=== PATIENT | female | born 1950 | race Caucasian/White ===

== ENCOUNTER 2017-11-04 04:31 | Inpatient (IN) ==
[2017-11-04 05:18] LABS: Baso # (Auto) 0.1 th/mm3 (0.0-0.2); Baso % (Auto) 0.4 % (0.0-2.0); Eos # (Auto) 0.1 th/mm3 (0.0-0.4); Eos % (Auto) 0.8 % (0.0-4.0); Hematocrit 46.2 % (35.0-46.0); Hemoglobin 15.3 gm/dL (11.6-15.3); Lymph # (Auto) 1.5 th/mm3 (1.0-4.8); Lymph % (Auto) 11.1 % (9.0-44.0); Mean Corpuscular HGB Conc 33.2 % (32.0-36.0); Mean Corpuscular Hemoglobin 27.5 pg (27.0-34.0); Mean Corpuscular Volume 82.9 fL (80.0-100.0); Mean Platelet Volume 7.7 fL (7.0-11.0); Mono # (Auto) 0.5 th/mm3 (0.0-0.9); Mono % (Auto) 3.7 % (0.0-8.0); Neut # (Auto) 11.6 th/mm3 (1.8-7.7); Platelet Count 262 th/mm3 (150-450); Red Blood Count 5.58 mil/mm3 (4.00-5.30); Red Cell Distribution Width 16.6 % (11.6-17.2); White Blood Count 13.8 th/mm3 (4.0-11.0)
[2017-11-04 05:39] LABS: Albumin 3.9 g/dL (3.4-5.0); Anion Gap 6 meq/L (5-15); Aspartate Aminotransferase 14 U/L (15-37); Blood Urea Nitrogen 27 mg/dL (7-18); Calcium 8.7 mg/dL (8.5-10.1); Carbon Dioxide 25.7 meq/L (21.0-32.0); Chloride 105 meq/L (98-107); Glomerular Filtration Rate 44 mL/min (>89); Glucose,Random 163 mg/dL (74-106); Lipase 136 U/L (73-393); Potassium 4.1 meq/L (3.5-5.1); Sodium 137 meq/L (136-145)
[2017-11-04 05:40] LABS: Alanine Aminotransferase 15 U/L (10-53)
[2017-11-04 05:42] LABS: Alkaline Phosphatase 130 U/L (45-117); Total Protein 7.8 g/dL (6.4-8.2)
[2017-11-04] MEDS ORDERED: Famotidine PF Inj 20 MG/2 ML Vial IV.PUSH ONE (05:45)
[2017-11-04] MEDS ORDERED: Morphine Inj 4 MG/ML Vial IV.PUSH ONE (05:45)
[2017-11-04] MEDS ORDERED: Diatrizoate Meglum/Diatrizoate Sod Liq 9 ML UDC PO ONE (05:46)
[2017-11-04] MEDS ORDERED: Sodium Chlor 0.9% Inj 500 ML IV.SIG ONE (05:54)
--- NOTE | 2017-11-04 05:54 | ED ---
HPI General Chief Complaint: Abdominal Pain Stated Complaint: stomach cramping Time Seen by Provider: 11/04/17 04:45 Source: patient Mode of arrival: ambulatory Limitations: no limitations History of Present Illness HPI narrative: Patient is a 67-year-old female who is coming in with periumbilical abdominal pain that is getting worse over the last week she says she had a hernia repair 5 years ago and now whenever she sits up feels like something sticks out of her abdomen and she feels something sharp almost sticking her she denies constipation denies diarrhea. But she did vomit 3 times out of pain tonight possibly could be obstruction. Patient has mild hypertension. Denies diabetes she has had her appendix out 40 years ago. Her pain is a dull achy pain made worse with sitting up she is associated with vomiting 3 times tonight she did not take anything for the pain. It is alleviated by lying flat made worse by sitting up she has not seen another doctor for this she does not have a doctor in the [facility] system she is from [place] originally that is where she had her surgery 5 years ago for a ventral hernia repair she has mild edema in her feet which is a chronic situation she is on a water pill. Related Data Home Medications Medication Instructions Recorded Confirmed amlodipine 5 mg PO DAILY 11/04/17 11/04/17 amlodipine 10 mg PO DAILY 11/04/17 11/04/17 duloxetine 60 mg PO DAILY 11/04/17 11/04/17 hydroxyzine pamoate 100 mg PO BID PRN 11/04/17 11/04/17 losartan 50 mg PO DAILY 11/04/17 11/04/17 Allergies Allergy/AdvReac Type Severity Reaction Status Date / Time No Known Allergies Allergy Verified 11/04/17 04:35 Review of Systems Except as stated in HPI: all other systems reviewed are negative [facility] Medical History Medical History Anxiety (Acute) Hypertension (Acute) Murmur, cardiac (Acute) Psoriasis (Acute) Restless legs syndrome (Acute) Surgical History Surgical History Hx of hernia repair (Acute) Family History Family History Grandparent Diabetes Social History Social History Substance History: Active Abuse Second Hand Smoke Exposure: No Smoking Status: Current every day smoker Tobacco Type: Cigarettes Packs Per Day: 0.5 (since 18 years) Cigarettes Per Day: 10.0 How Often Do You Have a Drink Containing Alcohol: Monthly or less Recent Travel in [place] within the Last 8 Weeks: No Recent Out of Country Travel within the Last 8 Weeks: No Substance Abuse Detail Marijuana: Substance Use Status: Active Reason for Use: Feels Good Immunization History Tetanus Immunization: Unsure Hx Influenza Vaccine This Season: No Exam Narrative Exam Narrative: GENERAL: Patient laying flat in the stretcher in no apparent distress SKIN: Warm and dry. HEAD: Atraumatic. Normocephalic. EYES: Pupils equal and round. No scleral icterus. No injection or drainage. ENT: No nasal bleeding or discharge. Mucous membranes pink and moist. NECK: Trachea midline. No JVD. CARDIOVASCULAR: Regular rate and rhythm. RESPIRATORY: No accessory muscle use. Clear to auscultation. Breath sounds equal bilaterally. GASTROINTESTINAL: Abdomen obese abdomen with a slight defect in the periumbilical area when she sits up defect shows some bowel coming through this week and abdominal wall. Skin has a Kaylin-like circular rash about 4 cm possibly fungal MUSCULOSKELETAL: Extremities mild 1+ pitting edema mild to the bilateral feet ..left slightly larger than the right its. Five out of 5 muscle strength in the arms and legs. Normal speech. PSYCHIATRIC: Appropriate mood and affect; insight and judgment normal. Course Initial Documented Vital Signs Temperature 98.1 F 11/04/17 04:35 Pulse Rate 93 H 11/04/17 04:35 Respiratory Rate 18 11/04/17 04:35 Blood Pressure 169/82 H 11/04/17 04:35 Pulse Oximetry 96 11/04/17 04:35 Last Documented Vital Signs Temperature 98.6 F 11/06/17 12:00 Pulse Rate 84 11/06/17 12:00 Respiratory Rate 20 11/06/17 12:00 Blood Pressure 178/81 H 11/06/17 12:00 Pulse Oximetry 93 L 11/06/17 12:00 Medical Decision Making [facility] Narrative Medical decision making narrative: DDx is SBO versus abdominal wall laxity versus other upright and flat chest x-ray done as well labs are reviewed no significant findings on labs nor on plain films her pain indicate need for a p.o. CAT scan and make sure the contrast passes all the way to her's large bowel and there is no small bowel obstruction with a history of prior surgery acute pain and vomiting I want to rule out small bowel obstruction with a p.o. contrast CAT scan I give her for morphine 500 cc of normal saline and CAT scan Patient signed out to me by Dr. Jones at 700. CT scan shows SBO. NG tube placed. Patient will be admitted for further management. Differential Diagnosis Differential Diagnosis: SBO vs hernia recurrence vs ileus vs gastroenteritis vs colitis other adhesion causing pain Lab Data Result diagrams: 11/06/17 08:16 11/06/17 08:16 Lab Results 11/04/17 11/04/17 11/04/17 Range/Units 04:50 04:50 06:08 WBC 13.8 H (4.0-11.0) th/mm3 RBC 5.58 H (4.00-5.30) mil/mm3 Hgb 15.3 (11.6-15.3) gm/dL Hct 46.2 H (35.0-46.0) % MCV 82.9 (80.0-100.0) fL MCH 27.5 (27.0-34.0) pg MCHC 33.2 (32.0-36.0) % RDW 16.6 (11.6-17.2) % Plt Count 262 (150-450) th/mm3 MPV 7.7 (7.0-11.0) fL Neut % (Auto) 84.0 H (16.0-70.0) % Lymph % (Auto) 11.1 (9.0-44.0) % Rains % (Auto) 3.7 (0.0-8.0) % Eos % (Auto) 0.8 (0.0-4.0) % Baso % (Auto) 0.4 (0.0-2.0) % Neut # (Auto) 11.6 H (1.8-7.7) th/mm3 Lymph # (Auto) 1.5 (1.0-4.8) th/mm3 Rains # (Auto) 0.5 (0.0-0.9) th/mm3 Eos # (Auto) 0.1 (0.0-0.4) th/mm3 Baso # (Auto) 0.1 (0.0-0.2) th/mm3 WBC Differential . Differential Comment Auto diff final PT (9.8-11.6) sec INR Ratio Sodium 137 (136-145) meq/L Potassium 4.1 (3.5-5.1) meq/L Chloride 105 (98-107) meq/L Carbon Dioxide 25.7 (21.0-32.0) meq/L Anion Gap 6 (5-15) meq/L BUN 27 H (7-18) mg/dL Creatinine 1.23 H (0.50-1.00) mg/dL Estimated GFR 44 L (>89) mL/min Random Glucose 163 H (74-106) mg/dL Calcium 8.7 (8.5-10.1) mg/dL Total Bilirubin 0.4 (0.2-1.0) mg/dL Direct Bilirubin (0.0-0.2) mg/dL Indirect Bilirubin (0.0-0.8) mg/dL AST 14 L (15-37) U/L ALT 15 (10-53) U/L Alkaline Phosphatase 130 H (45-117) U/L Total Protein 7.8 (6.4-8.2) g/dL Albumin 3.9 (3.4-5.0) g/dL Lipase 136 (73-393) U/L Urine Color Yellow (Yellw/Straw) Urine Clarity Clear (Clear) Urine pH 5.0 (5.0-8.5) Ur Specific [place] 1.018 (1.002-1.035) Urine Protein 30 H (Neg-Trace) mg/dL Urine Glucose (UA) Negative (Negative) mg/dL Urine Ketones Negative (Negative) mg/dL Urine Occult Blood Negative (Negative) Urine Nitrate Negative (Negative) Urine Bilirubin Negative (Negative) Urine Urobilinogen 4 or greater (Less than 2) mg/dL Ur Leukocyte Esterase Negative (Negative) Urine RBC 1 (0-3) /hpf Urine WBC 3 (0-5) /hpf Ur Squamous Epith Cells 1 (0-5) /hpf Urine Bacteria Rare H (None) /hpf Hyaline Casts 6 (0-3) /lpf Urine Mucus Few H (Occasional) /lpf Urine Opiates Screen (Neg) Ur Barbiturates Screen (Neg) Ur Amphetamines Screen (Neg) U Benzodiazepines Scrn (Neg) Urine Cocaine Screen (Neg) U Cannabinoids Screen (Neg) 11/04/17 11/05/17 11/05/17 Range/Units 06:08 07:50 07:50 WBC 9.6 (4.0-11.0) th/mm3 RBC 5.73 H (4.00-5.30) mil/mm3 Hgb 15.6 H (11.6-15.3) gm/dL Hct 47.7 H (35.0-46.0) % MCV 83.3 (80.0-100.0) fL MCH 27.3 (27.0-34.0) pg MCHC 32.8 (32.0-36.0) % RDW 16.3 (11.6-17.2) % Plt Count 287 (150-450) th/mm3 MPV 8.2 (7.0-11.0) fL Neut % (Auto) 81.6 H (16.0-70.0) % Lymph % (Auto) 10.6 (9.0-44.0) % Rains % (Auto) 7.7 (0.0-8.0) % Eos % (Auto) 0.0 (0.0-4.0) % Baso % (Auto) 0.1 (0.0-2.0) % Neut # (Auto) 7.8 H (1.8-7.7) th/mm3 Lymph # (Auto) 1.0 (1.0-4.8) th/mm3 Rains # (Auto) 0.7 (0.0-0.9) th/mm3 Eos # (Auto) 0.0 (0.0-0.4) th/mm3 Baso # (Auto) 0.0 (0.0-0.2) th/mm3 WBC Differential . Differential Comment Auto diff final PT 10.1 (9.8-11.6) sec INR 1.0 Ratio Sodium (136-145) meq/L Potassium (3.5-5.1) meq/L Chloride (98-107) meq/L Carbon Dioxide (21.0-32.0) meq/L Anion Gap (5-15) meq/L BUN (7-18) mg/dL Creatinine (0.50-1.00) mg/dL Estimated GFR (>89) mL/min Random Glucose (74-106) mg/dL Calcium (8.5-10.1) mg/dL Total Bilirubin (0.2-1.0) mg/dL Direct Bilirubin (0.0-0.2) mg/dL Indirect Bilirubin (0.0-0.8) mg/dL AST (15-37) U/L ALT (10-53) U/L Alkaline Phosphatase (45-117) U/L Total Protein (6.4-8.2) g/dL Albumin (3.4-5.0) g/dL Lipase (73-393) U/L Urine Color (Yellw/Straw) Urine Clarity (Clear) Urine pH (5.0-8.5) Ur Specific [place] (1.002-1.035) Urine Protein (Neg-Trace) mg/dL Urine Glucose (UA) (Negative) mg/dL Urine Ketones (Negative) mg/dL Urine Occult Blood (Negative) Urine Nitrate (Negative) Urine Bilirubin (Negative) Urine Urobilinogen (Less than 2) mg/dL Ur Leukocyte Esterase (Negative) Urine RBC (0-3) /hpf Urine WBC (0-5) /hpf Ur Squamous Epith Cells (0-5) /hpf Urine Bacteria (None) /hpf Hyaline Casts (0-3) /lpf Urine Mucus (Occasional) /lpf Urine Opiates Screen Neg (Neg) Ur Barbiturates Screen Neg (Neg) Ur Amphetamines Screen Neg (Neg) U Benzodiazepines Scrn Neg (Neg) Urine Cocaine Screen Neg (Neg) U Cannabinoids Screen Pos H (Neg) 11/05/17 11/06/17 11/06/17 Range/Units 07:50 08:16 08:16 WBC 7.5 (4.0-11.0) th/mm3 RBC 5.27 (4.00-5.30) mil/mm3 Hgb 14.6 (11.6-15.3) gm/dL Hct 44.2 (35.0-46.0) % MCV 83.9 (80.0-100.0) fL MCH 27.8 (27.0-34.0) pg MCHC 33.1 (32.0-36.0) % RDW 16.8 (11.6-17.2) % Plt Count 241 (150-450) th/mm3 MPV 8.1 (7.0-11.0) fL Neut % (Auto) 50.1 (16.0-70.0) % Lymph % (Auto) 34.0 (9.0-44.0) % Rains % (Auto) 11.7 H (0.0-8.0) % Eos % (Auto) 4.0 (0.0-4.0) % Baso % (Auto) 0.2 (0.0-2.0) % Neut # (Auto) 3.8 (1.8-7.7) th/mm3 Lymph # (Auto) 2.6 (1.0-4.8) th/mm3 Rains # (Auto) 0.9 (0.0-0.9) th/mm3 Eos # (Auto) 0.3 (0.0-0.4) th/mm3 Baso # (Auto) 0.0 (0.0-0.2) th/mm3 WBC Differential . Differential Comment Auto diff final PT (9.8-11.6) sec INR Ratio Sodium 141 142 (136-145) meq/L Potassium 3.8 3.8 (3.5-5.1) meq/L Chloride 107 110 H (98-107) meq/L Carbon Dioxide 23.7 23.9 (21.0-32.0) meq/L Anion Gap 10 8 (5-15) meq/L BUN 19 H 12 (7-18) mg/dL Creatinine 0.77 0.61 (0.50-1.00) mg/dL Estimated GFR 75 L Greater than 89 (>89) mL/min Random Glucose 118 H 79 (74-106) mg/dL Calcium 8.4 L 7.6 L D (8.5-10.1) mg/dL Total Bilirubin 0.4 0.3 (0.2-1.0) mg/dL Direct Bilirubin 0.1 (0.0-0.2) mg/dL Indirect Bilirubin 0.3 (0.0-0.8) mg/dL AST 15 16 (15-37) U/L ALT 13 11 (10-53) U/L Alkaline Phosphatase 125 H 94 (45-117) U/L Total Protein 7.0 D 6.4 D (6.4-8.2) g/dL Albumin 3.3 L D 3.0 L (3.4-5.0) g/dL Lipase 89 (73-393) U/L Urine Color (Yellw/Straw) Urine Clarity (Clear) Urine pH (5.0-8.5) Ur Specific [place] (1.002-1.035) Urine Protein (Neg-Trace) mg/dL Urine Glucose (UA) (Negative) mg/dL Urine Ketones (Negative) mg/dL Urine Occult Blood (Negative) Urine Nitrate (Negative) Urine Bilirubin (Negative) Urine Urobilinogen (Less than 2) mg/dL Ur Leukocyte Esterase (Negative) Urine RBC (0-3) /hpf Urine WBC (0-5) /hpf Ur Squamous Epith Cells (0-5) /hpf Urine Bacteria (None) /hpf Hyaline Casts (0-3) /lpf Urine Mucus (Occasional) /lpf Urine Opiates Screen (Neg) Ur Barbiturates Screen (Neg) Ur Amphetamines Screen (Neg) U Benzodiazepines Scrn (Neg) Urine Cocaine Screen (Neg) U Cannabinoids Screen (Neg) Imaging Data Radiologist's impression: Abdomen X-Ray 11/04/17 04:53 CONCLUSION: No dilated loops of small or large bowel. Chest X-Ray 11/04/17 04:53 CONCLUSION: Cardiomegaly and indistinctness of the central bronchopulmonary markings. Abdomen/Pelvis CT 11/04/17 05:44 CONCLUSION: Small bowel obstruction with transition point in the right lower quadrant. No evidence of pneumatosis, portal venous gas, or pneumoperitoneum. No significant bowel wall thickening or surrounding edema to suggest ischemia at this time. Of note, there is mild swirling of the mesenteric vasculature near the root of the mesentery, which is nonspecific but can be seen in internal hernia/volvulus. Findings discussed with ER nurseMorena, at 7:45 AM on 11/04/2017. Abdomen X-Ray 11/05/17 00:00 CONCLUSION: No evidence of bowel obstruction. Discharge Plan Discharge Disposition Patient Disposition: 30 Still Patient Discharge Condition Condition: Stable Discharge Order Discharge Orders: Discharge Order (Routine); Ordered 11/06/17 Ordered By: Shaunna Almazan Discharge Details Diagnosis: SBO (small bowel obstruction) Physicians Team ED Provider: Channing Jones Primary Care Provider: Socrates Soto Attending Provider: Anthony Elkins Other Providers: Channing Leon Status ED Status: Left Department Discharge Information Discharge Date/Time: 11/04/17 10:49
[2017-11-04 06:23] LABS: Bacteria,Urine Rare /hpf; Bilirubin,Urine Negative (Negative); Clarity,Urine Clear (Clear); Color,Urine Yellow (Yellw/Straw); Glucose,Urine (UA) Negative (Negative); Hyaline Casts,Urine 6 /lpf (0-3); Leukocyte Esterase,Urine Negative (Negative); Mucus,Urine Few /lpf (Occasional); Nitrite,Urine Negative (Negative); Specific Gravity,Urine 1.018 (1.002-1.035); Squamous Epithelial Cell,Urine 1 /hpf (0-5); Urobilinogen,Urine 4 or Greater mg/dL (Less than 2)
--- NOTE | 2017-11-04 06:23 | XR ---
EXAM DATE: 11/04/2017 5:26 AM EDT AGE/SEX: 67 years / Female INDICATIONS: Abdomen pain and cramping. CLINICAL DATA: This is the patient's initial encounter. Patient reports that signs and symptoms have been present for 1 day and indicates a pain score of 5/10. MEDICAL/SURGICAL HISTORY: None. None. COMPARISON: No prior exams available for comparison. FINDINGS: Supine and upright views of the abdomen demonstrate some mild gaseous loops of bowel without dilated loops of small or large bowel. The visualized lower lungs are clear. Mild degenerative changes in the spine. Large body habitus. CONCLUSION: No dilated loops of small or large bowel. Electronically signed by: Wily Uriarte MD 11/04/2017 6:21 AM EDT
--- NOTE | 2017-11-04 06:24 | XR ---
EXAM DATE: 11/04/2017 5:27 AM EDT AGE/SEX: 67 years / Female INDICATIONS: Chest and abdomen pain. CLINICAL DATA: This is the patient's subsequent encounter. Patient reports that signs and symptoms h ave been present for 1 day and indicates a pain score of 4/10. MEDICAL/SURGICAL HISTORY: None. None. COMPARISON: No prior exams available for comparison. FINDINGS: The heart is moderately enlarged. There is some indistinctness of the central bronchopulmonary markin gs. No focal infiltrates seen. Both hemidiaphragms well delineated. CONCLUSION: Cardiomegaly and indistinctness of the central bronchopulmonary markings. Electronically signed by: Wily Uriarte MD 11/04/2017 6:22 AM EDT
--- NOTE | 2017-11-04 07:50 | CT ---
EXAM DATE: 11/04/2017 7:33 AM EDT AGE/SEX: 67 years / Female INDICATIONS: Shana-umbilical pain for 1 week. CLINICAL DATA: This is the patient's initial encounter. Patient reports that signs and symptoms have been present for 1 day and indicates a pain score of 2/10. MEDICAL/SURGICAL HISTORY: Hypertension. Appendectomy. Hernia repair ORAL CONTRAST: Prescribed oral contrast ingested. RADIATION DOSE: 17.20 CTDI (mGy) COMPARISON: No prior exams available for comparison. TECHNIQUE: Multiple contiguous axial images were obtained through the abdomen and pelvis following b olus infusion of 95 ml Omnipaque 350 (iohexol) nonionic water-soluble contrast as a single exam dos e. Prescribed oral contrast ingested. Using automated exposure control and adjustment of the mA and/ or kV according to patient size, radiation dose was kept as low as reasonably achievable to obtain op timal diagnostic quality images. DICOM format image data is available electronically for review and comparison. FINDINGS: Lower Lungs: The visualized lower lungs are clear. Liver: The liver has a homogeneous density without space-occupying lesion. There is no dilation of th e biliary tree. Spleen: Homogeneous density without enlargement. Pancreas: Unremarkable without mass or calcification. Kidneys: Normal in size and shape. No hydronephrosis. Right inferior pole renal cyst. Adrenal Glands: Nodular thickening of both adrenal glands, left greater than right. Aorta: The aorta and proximal iliac vessels are atherosclerotic without aneurysmal dilation. Bowel/Mesentery: Several mildly dilated loops of small bowel with air-fluid levels throughout the ab domen with a transition point in the right lower quadrant, consistent with small bowel obstruction. N o evidence of pneumatosis, portal venous gas, or pneumoperitoneum. No significant bowel wall thickeni ng or surrounding edema. There is mild swirling of mesenteric vasculature near the root of the mesent jon. Multiple small mesenteric lymph nodes. Abdominal Wall: Small fat-containing ventral hernia. Retroperitoneum: No evidence of adenopathy in the retrocrural, para-aortic, or deep pelvic regions. Bladder: Contours are smooth. Reproductive Organs: No abnormal masses or calcifications seen. Inguinal: The inguinal region is unremarkable without evidence of adenopathy. Bony Structures: Degenerative changes of the spine and pelvis. CONCLUSION: Small bowel obstruction with transition point in the right lower quadrant. No evidence of pneumatosis , portal venous gas, or pneumoperitoneum. No significant bowel wall thickening or surrounding edema t o suggest ischemia at this time. Of note, there is mild swirling of the mesenteric vasculature near t he root of the mesentery, which is nonspecific but can be seen in internal hernia/volvulus. Findings discussed with ER nurse, Morena, at 7:45 AM on 11/04/2017. Electronically signed by: Deepa Acuña MD 11/04/2017 7:49 AM EDT
--- NOTE | 2017-11-04 09:15 | P.HPFP ---
History of Present Illness Primary Care Physician: Socrates Soto <Anthony Elkins - 11/05/17 20:07> Socrates Soto <Michelle Acosta - 11/04/17 09:15> History of Present Illness: 67 year old female with a past medical history of hypertension, cardiac murmur, previous hernia repair 7 years ago presents to the emergency room due to midepigastric abdominal pain that started last night around 11pm, she had associated cramping and described it as labor pains. The pain does not radiate. She had associated nausea and vomiting. Emesis x3 ( clear fluids, no blood or bile). She did not take anything to relieve the pain. Nothing seems to make the pain better or worse and the pain comes and goes since 11pm. After that last time she threw up around 4 am, it was so bad that she broke out in a sweat and that prompted her to come to the ED. This has never happened to her before in the past. She has not had anything to eat anything since 11 am yesterday morning and had orange chicken from the [employer] restaurant. Last BM was a "hard BM" yesterday but pt is unsure of what time she went. She denies any melana. She had a hernia repair 7 year ago and the team noticed an additional hernia after the surgery that was not repaired due to the surgeon leaving the state. She states she has not been able to follow-up on this. Denies any recent illnesses or sick contacts. Has a BM at least once a day. Positive flatus earlier this morning. SH: lives in an apartment with her daughter, feels safe at home, not sexually active. <Michelle Acosta - 11/04/17 22:33> - Diagnosis (1) SBO (small bowel obstruction) (2) Nausea & vomiting (3) MARTIN (acute kidney injury) (4) Hypertension (5) Anxiety (6) Restless leg (7) Smoker (8) History of drug abuse (9) Nutrition, metabolism, and development symptoms (10) DVT prophylaxis <Anthony Elkins - 11/05/17 20:07> (1) SBO (small bowel obstruction) (2) Nausea & vomiting (3) MARTIN (acute kidney injury) (4) Hypertension (5) Anxiety (6) Restless leg (7) Smoker (8) History of drug abuse (9) Nutrition, metabolism, and development symptoms (10) DVT prophylaxis <Michelle Acosta 11/04/17 22:54> Inpatient Certification: I certify that the inpatient services were ordered in accordance with Medicare regulations governing the order. This includes certification that hospital inpatient services are reasonable and necessary and in the case of services not specified as inpatient-only under 42 CFR 419.22(n), that they are appropriately provided as inpatient services in accordance to with the 2-midnight benchmark under 43 CFR 412.3(e) <BrittniAnthony 11/05/17 20:07> I certify that the inpatient services were ordered in accordance with Medicare regulations governing the order. This includes certification that hospital inpatient services are reasonable and necessary and in the case of services not specified as inpatient-only under 42 CFR 419.22(n), that they are appropriately provided as inpatient services in accordance to with the 2-midnight benchmark under 43 CFR 412.3(e) <Michelle Acosta 11/04/17 09:15> Review of Systems Constitutional: Reports weakness, Denies chills, Denies fever(s), Denies weight gain, Denies weight loss <Michelle Acosta 11/04/17 09:15> Cardiovascular: Reports irregular heart rhythm, Denies chest pain <Michelle Acosta 11/04/17 09:15> Comments: patient has a heart murmur <Michelle Acosta 11/04/17 09:15> Respiratory: Reports cough, Denies shortness of breath, Denies shortness of breath with activity <Michelle Acosta 11/04/17 09:15> Comments: productive sputum: phlegm color <Michelle Acosta 11/04/17 09:15> Gastrointestinal: Reports abdominal pain, Reports cramping, Denies black, tarry stools, Denies bright, red blood in stools, Denies change in bowel habits, Denies change in stools, Denies constipation <Michelle Acosta 11/04/17 09:15> PMFSH - History History Provided By: Patient <Michelle Acosta 11/04/17 09:15> - Medical History Medical History: Medical History (Last Updated 11/04/17 @ 09:15 by Michelle Acosta MD, R1) Anxiety Hypertension Murmur, cardiac Psoriasis Restless legs syndrome <BrittniAnthony 11/05/17 19:55> Medical History (Last Updated 11/04/17 @ 09:15 by Michelle Acosta MD, R1) Anxiety Hypertension Murmur, cardiac Psoriasis Restless legs syndrome <Michelle Acosta - 11/04/17 09:15> - Surgical History Surgical History: Surgical History (Last Reviewed 11/04/17 @ 09:15 by Michelle Acosta MD, R1) Hx of hernia repair <Anthony Elkins 11/05/17 19:55> Surgical History (Last Reviewed 11/04/17 @ 09:15 by Michelle Acosta MD, R1) Hx of hernia repair <Michelle Acosta - 11/04/17 09:15> - Family History Family History: Family History (Last Updated 11/04/17 @ 09:10 by Michelle Acosta MD, R1) Grandparent Diabetes <Anthony Elkins 11/05/17 19:55> Family History (Last Updated 11/04/17 @ 09:10 by Michelle Acosta MD, R1) Grandparent Diabetes <Michelle Acosta 11/04/17 09:15> - Tobacco History Second Hand Smoke Exposure: No <Michelle Acosta 11/04/17 09:15> Tobacco Use In Past 30 Days: Yes <Michelle Acosta 11/04/17 09:15> Smoking Status: Current every day smoker <Michelle Acosta 11/04/17 09:15> Tobacco Type: Cigarettes <Michelle Acosta - 11/04/17 09:15> Packs Per Day: 0.5 (since 20 years) <Michelle Acosta 11/04/17 09:15> - Alcohol History How Often Do You Have a Drink Containing Alcohol: Monthly or less <Michelle Acosta 11/04/17 09:15> - Substance Use History Substance History: Active Abuse <Michelle Acosta 11/04/17 09:15> - Substance Use Type Marijuana Status: Active <Michelle Acosta - 11/04/17 09:15> Reason for Use: Feels Good <Michelle Acosta - 11/04/17 09:15> - Travel History Recent Travel in the [facility] Within the Last 8 Weeks: No <Roque Acostaantha - 09:15> Recent Travel Out of the Country Within the Last 8 Weeks: No <BrookchristaRoque shieldsMichelle - 11/04/17 09:15> - Immunization History Tetanus Immunization: Unsure <Roque Acostaantha - 11/04/17 09:15> Hx Influenza Vaccine This Season: No <BrookchristaRoque shieldsMichelle - 11/04/17 09:15> Medications and Allergies Allergies Allergy/AdvReac Type Severity Reaction Status Date / Time No Known Allergies Allergy Verified 11/04/17 04:35 <Anthony Elkins - 11/05/17 20:07> Home Medications Medication Instructions Recorded Confirmed Type amlodipine 5 mg PO DAILY 11/04/17 11/04/17 History amlodipine 10 mg PO DAILY 11/04/17 11/04/17 History duloxetine 60 mg PO DAILY 11/04/17 11/04/17 History hydroxyzine pamoate 100 mg PO BID PRN 11/04/17 11/04/17 History losartan 50 mg PO DAILY 11/04/17 11/04/17 History <Anthony Elkins - 11/05/17 20:07> Active Medications: Active Medications Al Hydroxide/Mg Hydroxide (Milk Of Magndarrel Liq) 30 ml PO Q12H PRN PRN Reason: Mild Constipation Bisacodyl (Dulcolax Supp) 10 mg RECTAL DAILY PRN PRN Reason: SEVERE CONSITIPATION Diphenhydramine HCl (Benadryl Inj) 25 mg IV.PUSH HS PRN PRN Reason: RESTLESS LEGS Enalaprilat (Vasotec Inj) 1.25 mg IV.PUSH Q6H PRN PRN Reason: BLOOD PRESSURE MANAGEMENT Heparin Sodium (Porcine) (Heparin Inj) 5,000 units SQ Q8HR [facility] Last Admin: 11/05/17 13:14 Dose: 5,000 units Sodium Chloride (Ns Inj) 1,000 mls @ 120 mls/hr IV.CONT .Q8H20M [facility] Last Admin: 11/05/17 06:24 Dose: 120 mls/hr Lactulose (Lactulose Liq) 30 ml PO DAILY PRN PRN Reason: SEVERE CONSITIPATION Morphine Sulfate (Morphine Inj) 2 mg IV.PUSH Q3H PRN PRN Reason: PAIN SCALE 1-5 OR MILD SOB Last Admin: 11/04/17 10:36 Dose: 2 mg Morphine Sulfate (Morphine Inj) 4 mg IV.PUSH Q2H PRN PRN Reason: PAIN 6-10;IF UNABLE TO TAKE PO Naloxone HCl (Narcan Inj) 0.4 mg IV.PUSH UNSCH PRN PRN Reason: SEE LABEL COMMENTS Nicotine (Habitrol 14 Mg Patch.24 Hr) 1 patch T-DERMAL DAILY PRN PRN Reason: WITHDRAWAL Ondansetron HCl (Zofran Inj) 4 mg IV.PUSH Q6H PRN PRN Reason: NAUSEA OR VOMITING Sennosides (Senokot) 17.2 mg PO Q12H PRN PRN Reason: Moderate Constipation Temazepam (Restoril) 15 mg PO HS PRN PRN Reason: INSOMNIA <Anthony Elkins - 11/05/17 19:55> Exam Vital signs: Vital Signs 11/04/17 20:00 11/05/17 00:00 11/05/17 04:00 Temperature 98.5 F 98.1 F 98.3 F Pulse Rate 92 H 98 H 100 H Respiratory Rate 20 20 18 Blood Pressure 154/75 H 157/74 H 132/61 Pulse Oximetry 92 L 94 L 92 L 11/05/17 04:24 11/05/17 08:00 11/05/17 12:00 Temperature 98.7 F 98.4 F Pulse Rate 100 H 97 H Respiratory Rate 20 20 Blood Pressure 166/80 H 166/77 H Pulse Oximetry 93 L 95 92 L 11/05/17 16:00 Temperature 98.3 F Pulse Rate 96 H Respiratory Rate 20 Blood Pressure 138/71 Pulse Oximetry 93 L Intake & Output 11/05/17 11/05/17 11/06/17 06:59 18:59 06:59 Intake Total 1200 / 1200 Output Total 1000 / 1000 5 / 5 Balance 200 / 200 -5 / -5 Weight 92.6 kg Intake: IV 1200 / 1200 NS Inj 1,000 ML @ 120 mls/hr IV 1000 / 1000 .CONT .Q8H20M [facility] Rx#:[id number] Ofirmev Inj 1,000 mg In 100 ml 200 / 200 @ 400 mls/hr IV.SIG Q6H [facility] Rx# :[id number] Output: Urine 3 / 3 Stool 2 / 2 Gastric Drainage 1000 / 1000 Right Nare Nasogastric Tube 1000 / 1000 Other: Date of Last Bowel Movement 11/05/17 11/05/17 # Bowel Movements 2 <Anthony Elkins - 11/05/17 20:07> Vital Signs 11/04/17 04:35 11/04/17 04:51 11/04/17 07:15 Temperature 98.1 F Pulse Rate 93 H 98 H 87 Respiratory Rate 18 20 16 Blood Pressure 169/82 H 151/109 H 182/86 H Pulse Oximetry 96 96 94 L Intake & Output 11/03/17 11/04/17 11/04/17 18:59 06:59 18:59 Intake Total 900 / 900 Balance 900 / 900 Weight 90.904 kg Intake: Oral 900 / 900 <Michelle Acosta - 11/04/17 09:15> Narrative: Elderly female, sitting upright in bed, leaning over and grimacing in pain. <Michelle Acosta - 11/04/17 10:47> - Constitutional no acute distress, mild distress <Michelle Acosta - 11/04/17 10:47> - Routine HEENT Exam Head: Present: normocephalic, atraumatic <Michelle Acosta - 11/04/17 10:47> - Routine Cardiovascular Exam Present: RRR, S1, S2, murmur (Grade 3 systolic murmur heard over the left sternal border. No radiation to the carotid.) <Michelle Acosta - 11/04/17 10: 47> - Routine Abdominal Exam Present: soft, tenderness, mass <Michelle Acosta 11/04/17 10:47> Comments: 1-2 cm area of hardness appreciated on the left lower quadrant 3 cm lateral from the umbilical incision. Pain elicited with palpation of this area. Umbilical incision noted. No erythema appreciated. 3 x 4 cm area of psoriasis appreciated around the mid epigastric region. Diffuse tenderness to palpation. <Michelle Acosta - 11/04/17 10:47> - Detailed Abdominal Exam Bowel sounds: absent (And right lower quadrant but hyperactive in left lower quadrant.) <Michelle Acosta - 11/04/17 10:47> Palpation/Percussion: Present: Gudino's sign <Aracelis Acostaa - 11/04/17 10:47> Results - Labs Result diagrams: 11/05/17 07:50 11/05/17 07:50 <Anthony Elkins - 11/05/17 20:07> Abnormal lab results 11/05/17 11/05/17 Range/Units 07:50 07:50 RBC 5.73 H (4.00-5.30) mil/mm3 Hgb 15.6 H (11.6-15.3) gm/dL Hct 47.7 H (35.0-46.0) % Neut % (Auto) 81.6 H (16.0-70.0) % Neut # (Auto) 7.8 H (1.8-7.7) th/mm3 BUN 19 H (7-18) mg/dL Estimated GFR 75 L (>89) mL/min Random Glucose 118 H (74-106) mg/dL Calcium 8.4 L (8.5-10.1) mg/dL Alkaline Phosphatase 125 H (45-117) U/L Albumin 3.3 L D (3.4-5.0) g/dL Short CBC 11/05/17 Range/Units 07:50 WBC 9.6 (4.0-11.0) th/mm3 Hgb 15.6 H (11.6-15.3) gm/dL Hct 47.7 H (35.0-46.0) % Plt Count 287 (150-450) th/mm3 [facility] 11/05/17 07:50 Sodium 141 Potassium 3.8 Chloride 107 Carbon Dioxide 23.7 BUN 19 H Creatinine 0.77 Calcium 8.4 L Liver Function 11/05/17 Range/Units 07:50 Total Bilirubin 0.4 (0.2-1.0) mg/dL Direct Bilirubin 0.1 (0.0-0.2) mg/dL AST 15 (15-37) U/L ALT 13 (10-53) U/L Alkaline Phosphatase 125 H (45-117) U/L Albumin 3.3 L D (3.4-5.0) g/dL <Anthony Elkins - 11/05/17 20:07> Abnormal lab results 11/04/17 11/04/17 11/04/17 Range/Units 04:50 04:50 06:08 WBC 13.8 H (4.0-11.0) th/mm3 RBC 5.58 H (4.00-5.30) mil/mm3 Hct 46.2 H (35.0-46.0) % Neut % (Auto) 84.0 H (16.0-70.0) % Neut # (Auto) 11.6 H (1.8-7.7) th/mm3 BUN 27 H (7-18) mg/dL Creatinine 1.23 H (0.50-1.00) mg/dL Estimated GFR 44 L (>89) mL/min Random Glucose 163 H (74-106) mg/dL AST 14 L (15-37) U/L Alkaline Phosphatase 130 H (45-117) U/L Urine Protein 30 H (Neg-Trace) mg/dL Urine Bacteria Rare H (None) /hpf Urine Mucus Few H (Occasional) /lpf Short CBC 11/04/17 Range/Units 04:50 WBC 13.8 H (4.0-11.0) th/mm3 Hgb 15.3 (11.6-15.3) gm/dL Hct 46.2 H (35.0-46.0) % Plt Count 262 (150-450) th/mm3 BMP 11/04/17 04:50 Sodium 137 Potassium 4.1 Chloride 105 Carbon Dioxide 25.7 BUN 27 H Creatinine 1.23 H Calcium 8.7 Liver Function 11/04/17 Range/Units 04:50 Total Bilirubin 0.4 (0.2-1.0) mg/dL AST 14 L (15-37) U/L ALT 15 (10-53) U/L Alkaline Phosphatase 130 H (45-117) U/L Albumin 3.9 (3.4-5.0) g/dL Urine 11/04/17 Range/Units 06:08 Urine Color Yellow (Yellw/Straw) Urine Clarity Clear (Clear) Urine pH 5.0 (5.0-8.5) Ur Specific [place] 1.018 (1.002-1.035) Urine Protein 30 H (Neg-Trace) mg/dL Urine Glucose (UA) Negative (Negative) mg/dL <Laqua,Michelle - 11/04/17 09:15> - Imaging Impressions Abdomen X-Ray 11/05/17 00:00 CONCLUSION: No evidence of bowel obstruction. <Anthony Elkins - 11/05/17 20:07> Impressions Abdomen X-Ray 11/04/17 04:53 CONCLUSION: No dilated loops of small or large bowel. Chest X-Ray 11/04/17 04:53 CONCLUSION: Cardiomegaly and indistinctness of the central bronchopulmonary markings. Abdomen/Pelvis CT 11/04/17 05:44 CONCLUSION: Small bowel obstruction with transition point in the right lower quadrant. No evidence of pneumatosis, portal venous gas, or pneumoperitoneum. No significant bowel wall thickening or surrounding edema to suggest ischemia at this time. Of note, there is mild swirling of the mesenteric vasculature near the root of the mesentery, which is nonspecific but can be seen in internal hernia/volvulus. Findings discussed with ER nurse, Morena, at 7:45 AM on 11/04/2017. <Michelle Acosta - 11/04/17 09:15> Caprini VTE Risk Assessment Caprini VTE Risk Assessment: No/Low Risk (score <= 1) <Michelle Acosta - 10:47> Caprini Risk Assessment Model: Point Value = 1 Point Value = 2 Point Value = 3 Point Value = 5 Age 41-60 Minor surgery BMI > 25 kg/m2 Swollen legs Varicose veins or History of unexplained or recurrent spontaneous Oral contraceptives or hormone replacement Sepsis (< 1 month) Serious lung disease, including pneumonia (< 1 month) Abnormal pulmonary function Acute myocardial infarction Congestive heart failure (< 1 month) History of inflammatory bowel disease Medical patient at bed rest Age 61-74 Arthroscopic surgery Major open surgery (> 45 min) Laparoscopic surgery (> 45 min) Malignancy Confined to bed (> 72 hours) Immobilizing plaster cast Central venous access Age >= 75 History of VTE Family history of VTE Factor V Leiden Prothrombin [id number] Lupus anticoagulant Anticardiolipin antibodies Elevated serum homocysteine Heparin-induced thrombocytopenia Other congenital or acquired thrombophilia Stroke (< 1 month) Elective arthroplasty Hip, pelvis, or leg fracture Acute spinal cord injury (< 1 month) <Anthony Elkins - 11/05/17 20:07> Point Value = 1 Point Value = 2 Point Value = 3 Point Value = 5 Age 41-60 Minor surgery BMI > 25 kg/m2 Swollen legs Varicose veins or History of unexplained or recurrent spontaneous Oral contraceptives or hormone replacement Sepsis (< 1 month) Serious lung disease, including pneumonia (< 1 month) Abnormal pulmonary function Acute myocardial infarction Congestive heart failure (< 1 month) History of inflammatory bowel disease Medical patient at bed rest Age 61-74 Arthroscopic surgery Major open surgery (> 45 min) Laparoscopic surgery (> 45 min) Malignancy Confined to bed (> 72 hours) Immobilizing plaster cast Central venous access Age >= 75 History of VTE Family history of VTE Factor V Leiden Prothrombin [id number] Lupus anticoagulant Anticardiolipin antibodies Elevated serum homocysteine Heparin-induced thrombocytopenia Other congenital or acquired thrombophilia Stroke (< 1 month) Elective arthroplasty Hip, pelvis, or leg fracture Acute spinal cord injury (< 1 month) <Michelle Acosta - 11/04/17 09:15> Prophylaxis Regimen: Total Risk Factor Score Risk Level Prophylaxis Regimen 0-1 Low Early ambulation 2 Moderate Order ONE of the following: *Sequential Compression Device (SCD) *Heparin 5000 units SQ BID 3-4 Higher Order ONE of the following medications: *Heparin 5000 units SQ TID *Enoxaparin/Lovenox 40 mg SQ daily (WT < 150 kg, CrCl > 30 mL/min) *Enoxaparin/Lovenox 30 mg SQ daily (WT < 150 kg, CrCl > 10-29 mL/min) *Enoxaparin/Lovenox 30 mg SQ BID (WT < 150 kg, CrCl > 30 mL/min) AND/OR *Sequential Compression Device (SCD) 5 or more Highest Order ONE of the following medications: *Heparin 5000 units SQ TID (Preferred with Epidurals) *Enoxaparin/Lovenox 40 mg SQ daily (WT < 150 kg, CrCl > 30 mL/min) *Enoxaparin/Lovenox 30 mg SQ daily (WT < 150 kg, CrCl > 10-29 mL/min) *Enoxaparin/Lovenox 30 mg SQ BID (WT < 150 kg, CrCl > 30 mL/min) AND *Sequential Compression Device (SCD) <Anthony Elkins - 11/05/17 20:07> Total Risk Factor Score Risk Level Prophylaxis Regimen 0-1 Low Early ambulation 2 Moderate Order ONE of the following: *Sequential Compression Device (SCD) *Heparin 5000 units SQ BID 3-4 Higher Order ONE of the following medications: *Heparin 5000 units SQ TID *Enoxaparin/Lovenox 40 mg SQ daily (WT < 150 kg, CrCl > 30 mL/min) *Enoxaparin/Lovenox 30 mg SQ daily (WT < 150 kg, CrCl > 10-29 mL/min) *Enoxaparin/Lovenox 30 mg SQ BID (WT < 150 kg, CrCl > 30 mL/min) AND/OR *Sequential Compression Device (SCD) 5 or more Highest Order ONE of the following medications: *Heparin 5000 units SQ TID (Preferred with Epidurals) *Enoxaparin/Lovenox 40 mg SQ daily (WT < 150 kg, CrCl > 30 mL/min) *Enoxaparin/Lovenox 30 mg SQ daily (WT < 150 kg, CrCl > 10-29 mL/min) *Enoxaparin/Lovenox 30 mg SQ BID (WT < 150 kg, CrCl > 30 mL/min) AND *Sequential Compression Device (SCD) <Michelle Acosta - 11/04/17 09:15> Assessment and Plan - Assessment (1) SBO (small bowel obstruction) Code(s): K56.609 - Unspecified intestinal obstruction, unspecified as to partial versus complete obstruction Status: Acute (2) Nausea & vomiting Code(s): R11.2 - Nausea with vomiting, unspecified Status: Acute (3) MARTIN (acute kidney injury) Code(s): N17.9 - Acute kidney failure, unspecified Status: Acute (4) Hypertension Code(s): I10 - Essential (primary) hypertension Status: Acute (5) Anxiety Code(s): F41.9 - Anxiety disorder, unspecified Status: Acute (6) Restless leg Code(s): G25.81 - Restless legs syndrome Status: Acute (7) Smoker Code(s): F17.200 - Nicotine dependence, unspecified, uncomplicated Status: Acute (8) History of drug abuse Code(s): Z87.898 - Personal history of other specified conditions Status: Acute (9) Nutrition, metabolism, and development symptoms Code(s): R63.8 - Other symptoms and signs concerning food and fluid intake Status: Acute (10) DVT prophylaxis Status: Acute <Anthony Elkins - 11/05/17 20:07> (1) SBO (small bowel obstruction) Code(s): K56.609 - Unspecified intestinal obstruction, unspecified as to partial versus complete obstruction Status: Acute Plan: Patient with acute midepigastric abdominal pain with associated nausea and vomiting, past hx of hernia repair, possible additional hernia per hx, CT shows SBO in RLQ. NG tube in place for decompression. Pt is comfortable. Surgery consulted. Appreciate recommendations. Zofran IV for nausea Morphine IV for pain. Continue to monitor bowel movements as morphine can cause constipation but given her severity of pain it is the only IV drug that makes her comfortable currently. Continue to monitor I&O's. Pt it currently NPO x 48 hours Patient cannot take any PO medications. All medications will be given IV. (2) Nausea & vomiting Code(s): R11.2 - Nausea with vomiting, unspecified Status: Acute Plan: Patient complains of nausea and vomiting. Zofran IV as needed for nausea. Continue to monitor I's and O's. (3) MARTIN (acute kidney injury) Code(s): N17.9 - Acute kidney failure, unspecified Status: Acute Plan: Cr. on admission 1.23. Possibly due to dehydration. Patient n.p.o. Continue normal saline hydration. Follow-up CMP in a.m. (4) Hypertension Code(s): I10 - Essential (primary) hypertension Status: Acute Plan: Patient takes 15 mg p.o. amlodipine daily at home. Unable to take p.o. due to NG tube. Patient hypertensive on admission: Systolics ranging from 150s-180s. Patient unable to take hypertension medications this morning due to nausea and vomiting. EKG ordered. Will follow up. Vasotec 1.25 mg added as needed for systolics over 160. We will resume home medications after patient being n.p.o. for 48 hours. (5) Anxiety Code(s): F41.9 - Anxiety disorder, unspecified Status: Acute Plan: She takes duloxetine at home for anxiety. Unable to take p.o. medications due to NG tube. Benadryl IV as needed for anxiety. (6) Restless leg Code(s): G25.81 - Restless legs syndrome Status: Acute Plan: She takes hydroxyzine for restless leg syndrome. Unable to take p.o. due to NG tube. Benadryl IV as needed for restless leg. (7) Smoker Code(s): F17.200 - Nicotine dependence, unspecified, uncomplicated Status: Acute Plan: Patient smokes a half a pack per day. Nicotine patch is ordered for withdrawals. (8) History of drug abuse Code(s): Z87.898 - Personal history of other specified conditions Status: Acute Plan: Urine drug screen ordered. follow up. (9) Nutrition, metabolism, and development symptoms Code(s): R63.8 - Other symptoms and signs concerning food and fluid intake Status: Acute Plan: Fluids: Normal saline at 120 mls/hour Electrolytes: Monitor and replete as needed. Diet: N.p.o. 48 hours (10) DVT prophylaxis Status: Acute Plan: Heparin 5000 units SQ q8. <Michelle Acosta - 11/04/17 22:54> - Assessment and Plan 67-year-old female with past medical history of hypertension, cardiac murmur, previous hernia repair 7 years ago presents to the emergency room with mid epigastric abdominal pain that started 4 hours before presentation. Patient has associated nausea and vomiting. SBO seen on CT. <Michelle Acosta - 11/04/17 22:54> Discharge Planning: Discharge status post gastric decompression, surgery recommendations, and clinical improvement <Michelle Acosta - 11/04/17 22:54>
[2017-11-04] MEDS ORDERED: Bisacodyl 10 MG Supp RECTAL PRN (09:25)
[2017-11-04] MEDS ORDERED: Temazepam 15 MG Capsule PO PRN (09:25)
[2017-11-04] MEDS ORDERED: Naloxone Inj 0.4 MG/ML Vial IV.PUSH PRN (09:40)
[2017-11-04] MEDS ORDERED: Morphine Sulfate Inj 2 MG/ML Vial IV.PUSH PRN (09:40)
[2017-11-04] MEDS: Heparin - SQ 10,000 UNITS/ML Vial SQ SCH ×3 (10:33→21:22)
[2017-11-04] MEDS: Sod Chloride 0.9% Inj 1,000 ML IV.CONT SCH ×2 (10:33→21:18)
[2017-11-04] MEDS: Morphine Inj 4 MG/ML Vial IV.PUSH PRN (14:19)
--- NOTE | 2017-11-04 15:36 | P.CONGS ---
[facility] Gen Surgery Consult Note Consult date: 11/04/17 Reason for consult: abdominal pain Narrative: Mrs. Keith is a 67-year-old female who presents with abdominal pain in the mid and left abdomen associated with multiple episodes of nonbloody emesis. She denies diarrhea. She has a history of appendectomy and some sort of hernia repair. She cannot remember what she had but she does know that she no longer has an umbilicus. She is noted to have leukocytosis of 14,[address] of the abdomen and pelvis shows small bowel obstruction with mild swirling of the mesentery. NG tube was placed. On my evaluation, she does complain of persistent abdominal pain. She is not passing flatus. Review of Systems All other systems reviewed negative except as stated in [facility] - History History Provided By: Patient - Medical History Medical History: Medical History (Last Updated 11/04/17 @ 09:15 by Michelle Acosta MD, R1) Anxiety Hypertension Murmur, cardiac Psoriasis Restless legs syndrome - Surgical History Surgical History: Surgical History (Last Reviewed 11/04/17 @ 09:15 by Michelle Acosta MD, R1) Hx of hernia repair - Family History Family History: Family History (Last Updated 11/04/17 @ 09:10 by Michelle Acosta MD, R1) Grandparent Diabetes - Tobacco History Second Hand Smoke Exposure: No Tobacco Use In Past 30 Days: Yes Smoking Status: Current every day smoker Tobacco Type: Cigarettes Packs Per Day: 0.5 (since 20 years) - Alcohol History How Often Do You Have a Drink Containing Alcohol: Monthly or less - Substance Use History Substance History: Active Abuse - Substance Use Type Marijuana Status: Active Reason for Use: Feels Good - Travel History Recent Travel in the [place] Within the Last 8 Weeks: No Recent Travel Out of the Country Within the Last 8 Weeks: No - Immunization History Tetanus Immunization: Unsure Hx Influenza Vaccine This Season: No Medications and Allergies Active Medications: Active Medications Al Hydroxide/Mg Hydroxide (Milk Of Magndarrel Liq) 30 ml PO Q12H PRN PRN Reason: Mild Constipation Bisacodyl (Dulcolax Supp) 10 mg RECTAL DAILY PRN PRN Reason: SEVERE CONSITIPATION Diphenhydramine HCl (Benadryl Inj) 25 mg IV.PUSH HS PRN PRN Reason: RESTLESS LEGS Enalaprilat (Vasotec Inj) 1.25 mg IV.PUSH Q6H PRN PRN Reason: BLOOD PRESSURE MANAGEMENT Heparin Sodium (Porcine) (Heparin Inj) 5,000 units SQ Q8HR [facility] [place] Last Admin: 11/04/17 14:19 Dose: 5,000 units Sodium Chloride (Ns Inj) 1,000 mls @ 120 mls/hr IV.CONT .Q8H20M [facility] [place] Last Admin: 11/04/17 10:33 Dose: 120 mls/hr Acetaminophen (Ofirmev Inj) 1,000 mg in 100 mls @ 400 mls/hr IV.SIG Q6H [facility] [place] Stop: 11/05/17 04:14 Last Admin: 11/04/17 10:00 Dose: Not Given Lactulose (Lactulose Liq) 30 ml PO DAILY PRN PRN Reason: SEVERE CONSITIPATION Morphine Sulfate (Morphine Inj) 2 mg IV.PUSH Q3H PRN PRN Reason: PAIN SCALE 1-5 OR MILD SOB Last Admin: 11/04/17 10:36 Dose: 2 mg Morphine Sulfate (Morphine Inj) 4 mg IV.PUSH Q3H PRN PRN Reason: PAIN 6-10;IF UNABLE TO TAKE PO Last Admin: 11/04/17 14:19 Dose: 4 mg Naloxone HCl (Narcan Inj) 0.4 mg IV.PUSH UNSCH PRN PRN Reason: SEE LABEL COMMENTS Nicotine (Habitrol 14 Mg Patch.24 Hr) 1 patch T-DERMAL DAILY PRN PRN Reason: WITHDRAWAL Ondansetron HCl (Zofran Inj) 4 mg IV.PUSH Q6H PRN PRN Reason: NAUSEA OR VOMITING Last Admin: 11/04/17 14:24 Dose: 4 mg Sennosides (Senokot) 17.2 mg PO Q12H PRN PRN Reason: Moderate Constipation Temazepam (Restoril) 15 mg PO HS PRN PRN Reason: INSOMNIA Allergies Allergy/AdvReac Type Severity Reaction Status Date / Time No Known Allergies Allergy Verified 11/04/17 04:35 Home Medications Medication Instructions Recorded Confirmed Type amlodipine 5 mg PO DAILY 11/04/17 11/04/17 History amlodipine 10 mg PO DAILY 11/04/17 11/04/17 History duloxetine 60 mg PO DAILY 11/04/17 11/04/17 History hydroxyzine pamoate 100 mg PO BID PRN 11/04/17 11/04/17 History losartan 50 mg PO DAILY 11/04/17 11/04/17 History Exam Vital signs: Vital Signs 11/04/17 04:35 11/04/17 04:51 11/04/17 07:15 Temperature 98.1 F Pulse Rate 93 H 98 H 87 Respiratory Rate 18 20 16 Blood Pressure 169/82 H 151/109 H 182/86 H Pulse Oximetry 96 96 94 L 11/04/17 09:54 11/04/17 10:40 11/04/17 12:00 Temperature 98.1 F 98.2 F Pulse Rate 9 L 98 H Respiratory Rate 18 18 Blood Pressure 148/83 H 155/85 H Pulse Oximetry 94 L 90 L Intake & Output 11/03/17 11/04/17 11/04/17 18:59 06:59 18:59 Intake Total 900 / 900 Balance 900 / 900 Weight 90.904 kg Intake: Oral 900 / 900 Narrative: GENERAL: Awake and alert. Appears uncomfortable. Appears older than stated age. HEAD: Normocephalic. Atraumatic. EYES: Pupils equal round and reactive to light bilaterally. No scleral icterus. ENT: Moist oral mucosa. NECK: Trachea midline. CHEST: Nonlabored breathing. No respiratory distress. CARDIOVASCULAR: Regular rate and rhythm. ABDOMEN: Moderate distention. Moderate diffuse tenderness to palpation. NG tube with orange/green output EXTREMITIES: No cyanosis or edema. SKIN: Warm, dry, nonjaundiced. Results - Labs 11/06/17 08:16 11/06/17 08:16 Abnormal lab results 11/04/17 11/04/17 11/04/17 Range/Units 04:50 04:50 06:08 WBC 13.8 H (4.0-11.0) th/mm3 RBC 5.58 H (4.00-5.30) mil/mm3 Hct 46.2 H (35.0-46.0) % Neut % (Auto) 84.0 H (16.0-70.0) % Neut # (Auto) 11.6 H (1.8-7.7) th/mm3 BUN 27 H (7-18) mg/dL Creatinine 1.23 H (0.50-1.00) mg/dL Estimated GFR 44 L (>89) mL/min Random Glucose 163 H (74-106) mg/dL AST 14 L (15-37) U/L Alkaline Phosphatase 130 H (45-117) U/L Urine Protein 30 H (Neg-Trace) mg/dL Urine Bacteria Rare H (None) /hpf Urine Mucus Few H (Occasional) /lpf Diabetes panel 11/04/17 Range/Units 04:50 Sodium 137 (136-145) meq/L Potassium 4.1 (3.5-5.1) meq/L Chloride 105 (98-107) meq/L Carbon Dioxide 25.7 (21.0-32.0) meq/L BUN 27 H (7-18) mg/dL Creatinine 1.23 H (0.50-1.00) mg/dL Calcium 8.7 (8.5-10.1) mg/dL AST 14 L (15-37) U/L ALT 15 (10-53) U/L Alkaline Phosphatase 130 H (45-117) U/L Total Protein 7.8 (6.4-8.2) g/dL Albumin 3.9 (3.4-5.0) g/dL Calcium panel 11/04/17 Range/Units 04:50 Calcium 8.7 (8.5-10.1) mg/dL Albumin 3.9 (3.4-5.0) g/dL Pituitary panel 11/04/17 Range/Units 04:50 Sodium 137 (136-145) meq/L Potassium 4.1 (3.5-5.1) meq/L Chloride 105 (98-107) meq/L Carbon Dioxide 25.7 (21.0-32.0) meq/L BUN 27 H (7-18) mg/dL Creatinine 1.23 H (0.50-1.00) mg/dL Calcium 8.7 (8.5-10.1) mg/dL Adrenal panel 11/04/17 Range/Units 04:50 Sodium 137 (136-145) meq/L Potassium 4.1 (3.5-5.1) meq/L Chloride 105 (98-107) meq/L Carbon Dioxide 25.7 (21.0-32.0) meq/L BUN 27 H (7-18) mg/dL Creatinine 1.23 H (0.50-1.00) mg/dL Calcium 8.7 (8.5-10.1) mg/dL Total Bilirubin 0.4 (0.2-1.0) mg/dL AST 14 L (15-37) U/L ALT 15 (10-53) U/L Alkaline Phosphatase 130 H (45-117) U/L Total Protein 7.8 (6.4-8.2) g/dL Albumin 3.9 (3.4-5.0) g/dL All other labs normal. - Imaging CT scan - abdomen: report reviewed, image reviewed CT scan - pelvis: report reviewed, image reviewed Assessment and Plan - Assessment (1) SBO (small bowel obstruction) Code(s): K56.609 - Unspecified intestinal obstruction, unspecified as to partial versus complete obstruction Status: Acute - Plan 67-year-old female with history of appendectomy and ventral hernia repair with small bowel obstruction, likely secondary to adhesions. She does have leukocytosis and abdominal tenderness. Will attempt nonoperative management. Repeat exam labs and abdominal films in the morning. Continue NG tube to suction. Case discussed in detail with the patient and she understands.
[2017-11-04 16:03] LABS: Amphetamine Screen,Urine Neg (Neg); Barbiturate Screen,Urine Neg (Neg); Cannabinoid Screen,Urine Pos (Neg); Cocaine Screen,Urine Neg (Neg)
[2017-11-04 16:09] LABS: Opiate Screen,Urine Neg (Neg)
[2017-11-05] MEDS: Morphine Inj 4 MG/ML Vial IV.PUSH PRN ×2 (03:27→09:02)
[2017-11-05] MEDS: Heparin - SQ 10,000 UNITS/ML Vial SQ SCH ×3 (06:23→21:27)
[2017-11-05] MEDS: Sod Chloride 0.9% Inj 1,000 ML IV.CONT SCH ×3 (06:24→20:10)
[2017-11-05 09:22] LABS: Baso % (Auto) 0.1 % (0.0-2.0); Hematocrit 47.7 % (35.0-46.0); Hemoglobin 15.6 gm/dL (11.6-15.3); Lymph % (Auto) 10.6 % (9.0-44.0); Mean Corpuscular HGB Conc 32.8 % (32.0-36.0); Mean Corpuscular Hemoglobin 27.3 pg (27.0-34.0); Mean Corpuscular Volume 83.3 fL (80.0-100.0); Mean Platelet Volume 8.2 fL (7.0-11.0); Mono # (Auto) 0.7 th/mm3 (0.0-0.9); Mono % (Auto) 7.7 % (0.0-8.0); Neut # (Auto) 7.8 th/mm3 (1.8-7.7); Neut % (Auto) 81.6 % (16.0-70.0); Platelet Count 287 th/mm3 (150-450); Red Blood Count 5.73 mil/mm3 (4.00-5.30); Red Cell Distribution Width 16.3 % (11.6-17.2); White Blood Count 9.6 th/mm3 (4.0-11.0)
[2017-11-05 09:32] LABS: Prothrombin Time 10.1 sec (9.8-11.6)
--- NOTE | 2017-11-05 10:02 | P.PNGS ---
Subjective Interval history: C/o persistent severe pain. Had small amt flatus. 800cc ng output overnight. Physical Exam Vital signs: Vital Signs 11/04/17 10:40 11/04/17 12:00 11/04/17 20:00 Temperature 98.1 F 98.2 F 98.5 F Pulse Rate 9 L 98 H 92 H Respiratory Rate 18 18 20 Blood Pressure 148/83 H 155/85 H 154/75 H Pulse Oximetry 90 L 92 L 11/05/17 00:00 11/05/17 04:00 11/05/17 04:24 Temperature 98.1 F 98.3 F Pulse Rate 98 H 100 H Respiratory Rate 20 18 Blood Pressure 157/74 H 132/61 Pulse Oximetry 94 L 92 L 93 L 11/05/17 08:00 Temperature 98.7 F Pulse Rate 100 H Respiratory Rate 20 Blood Pressure 166/80 H Pulse Oximetry 95 Intake & Output 11/04/17 11/05/17 11/05/17 18:59 06:59 18:59 Intake Total 1900 / 1900 1200 / 1200 Output Total 1000 / 1000 Balance 1900 / 1900 200 / 200 Weight 92.6 kg Intake: IV 1000 / 1000 1200 / 1200 NS Inj 1,000 ML @ 120 mls/hr IV 1000 / 1000 1000 / 1000 .CONT .Q8H20M [facility] Rx#:[id number] Ofirmev Inj 1,000 mg In 100 ml 200 / 200 @ 400 mls/hr IV.SIG Q6H [facility] Rx# :[id number] Oral 900 / 900 Output: Gastric Drainage 1000 / 1000 Right Nare Nasogastric Tube 1000 / 1000 Narrative: Distended, moderate diffuse ttp Assessment and Plan - Assessment (1) SBO (small bowel obstruction) Code(s): K56.609 - Unspecified intestinal obstruction, unspecified as to partial versus complete obstruction Status: Acute - Plan Small bowel obstruction. She is having persistent pain with fair amt of ng output. Check KUB. If no improvement will likely need operative intervention.
[2017-11-05 10:12] LABS: Albumin 3.3 g/dL (3.4-5.0); Anion Gap 10 meq/L (5-15); Aspartate Aminotransferase 15 U/L (15-37); Blood Urea Nitrogen 19 mg/dL (7-18); Calcium 8.4 mg/dL (8.5-10.1); Carbon Dioxide 23.7 meq/L (21.0-32.0); Chloride 107 meq/L (98-107); Glomerular Filtration Rate 75 mL/min (>89); Glucose,Random 118 mg/dL (74-106); Lipase 89 U/L (73-393); Potassium 3.8 meq/L (3.5-5.1); Sodium 141 meq/L (136-145)
[2017-11-05 10:13] LABS: Alanine Aminotransferase 13 U/L (10-53)
[2017-11-05 10:19] LABS: Alkaline Phosphatase 125 U/L (45-117)
[2017-11-05] MEDS ORDERED: Morphine Inj 4 MG/ML Vial IV.PUSH PRN (11:01)
--- NOTE | 2017-11-05 11:04 | P.PNFP ---
Subjective Interval history: Patient seen and examined bedside this morning. Patient states that she is in a lot of pain and is continuing to vomit, and she would like to have surgery. She is very uncomfortable. She feels like her pain medication works for 2 hours only. She denies any chest pain or shortness of breath or dizziness. She has passed a small amount of gas and has had 800 cc NG output overnight. <Shaunna Almazan - 11/05/17 11:04> Results - Labs Result diagrams: 11/05/17 07:50 11/05/17 07:50 <Anthony Elkins - 11/05/17 20:01> Abnormal lab results 11/05/17 11/05/17 Range/Units 07:50 07:50 RBC 5.73 H (4.00-5.30) mil/mm3 Hgb 15.6 H (11.6-15.3) gm/dL Hct 47.7 H (35.0-46.0) % Neut % (Auto) 81.6 H (16.0-70.0) % Neut # (Auto) 7.8 H (1.8-7.7) th/mm3 BUN 19 H (7-18) mg/dL Estimated GFR 75 L (>89) mL/min Random Glucose 118 H (74-106) mg/dL Calcium 8.4 L (8.5-10.1) mg/dL Alkaline Phosphatase 125 H (45-117) U/L Albumin 3.3 L D (3.4-5.0) g/dL Short CBC 11/05/17 Range/Units 07:50 WBC 9.6 (4.0-11.0) th/mm3 Hgb 15.6 H (11.6-15.3) gm/dL Hct 47.7 H (35.0-46.0) % Plt Count 287 (150-450) th/mm3 BMP 11/05/17 07:50 Sodium 141 Potassium 3.8 Chloride 107 Carbon Dioxide 23.7 BUN 19 H Creatinine 0.77 Calcium 8.4 L Liver Function 11/05/17 Range/Units 07:50 Total Bilirubin 0.4 (0.2-1.0) mg/dL Direct Bilirubin 0.1 (0.0-0.2) mg/dL AST 15 (15-37) U/L ALT 13 (10-53) U/L Alkaline Phosphatase 125 H (45-117) U/L Albumin 3.3 L D (3.4-5.0) g/dL <Anthony Elkins - 11/05/17 20:01> Abnormal lab results 11/04/17 11/05/17 11/05/17 Range/Units 06:08 07:50 07:50 RBC 5.73 H (4.00-5.30) mil/mm3 Hgb 15.6 H (11.6-15.3) gm/dL Hct 47.7 H (35.0-46.0) % Neut % (Auto) 81.6 H (16.0-70.0) % Neut # (Auto) 7.8 H (1.8-7.7) th/mm3 BUN 19 H (7-18) mg/dL Estimated GFR 75 L (>89) mL/min Random Glucose 118 H (74-106) mg/dL Calcium 8.4 L (8.5-10.1) mg/dL Alkaline Phosphatase 125 H (45-117) U/L Albumin 3.3 L D (3.4-5.0) g/dL U Cannabinoids Screen Pos H (Neg) Short CBC 11/05/17 Range/Units 07:50 WBC 9.6 (4.0-11.0) th/mm3 Hgb 15.6 H (11.6-15.3) gm/dL Hct 47.7 H (35.0-46.0) % Plt Count 287 (150-450) th/mm3 BMP 11/05/17 07:50 Sodium 141 Potassium 3.8 Chloride 107 Carbon Dioxide 23.7 BUN 19 H Creatinine 0.77 Calcium 8.4 L Liver Function 11/05/17 Range/Units 07:50 Total Bilirubin 0.4 (0.2-1.0) mg/dL Direct Bilirubin 0.1 (0.0-0.2) mg/dL AST 15 (15-37) U/L ALT 13 (10-53) U/L Alkaline Phosphatase 125 H (45-117) U/L Albumin 3.3 L D (3.4-5.0) g/dL <Shaunna Almazan - 11/05/17 11:04> - Imaging Impressions Abdomen X-Ray 11/05/17 00:00 CONCLUSION: No evidence of bowel obstruction. <Anthony Elkins - 11/05/17 20:01> Physical Exam Vital signs: Vital Signs 11/05/17 00:00 11/05/17 04:00 11/05/17 04:24 Temperature 98.1 F 98.3 F Pulse Rate 98 H 100 H Respiratory Rate 20 18 Blood Pressure 157/74 H 132/61 Pulse Oximetry 94 L 92 L 93 L 11/05/17 08:00 11/05/17 12:00 11/05/17 16:00 Temperature 98.7 F 98.4 F 98.3 F Pulse Rate 100 H 97 H 96 H Respiratory Rate 20 20 20 Blood Pressure 166/80 H 166/77 H 138/71 Pulse Oximetry 95 92 L 93 L Intake & Output 11/05/17 11/05/17 11/06/17 06:59 18:59 06:59 Intake Total 1200 / 1200 Output Total 1000 / 1000 5 / 5 Balance 200 / 200 -5 / -5 Weight 92.6 kg Intake: IV 1200 / 1200 NS Inj 1,000 ML @ 120 mls/hr IV 1000 / 1000 .CONT .Q8H20M [facility] Rx#:[id number] Ofirmev Inj 1,000 mg In 100 ml 200 / 200 @ 400 mls/hr IV.SIG Q6H [facility] Rx# :[id number] Output: Urine 3 / 3 Stool 2 / 2 Gastric Drainage 1000 / 1000 Right Nare Nasogastric Tube 1000 / 1000 Other: Date of Last Bowel Movement 11/05/17 11/05/17 # Bowel Movements 2 <Anthony Elkins - 11/05/17 20:01> Vital Signs 11/04/17 12:00 11/04/17 20:00 11/05/17 00:00 Temperature 98.2 F 98.5 F 98.1 F Pulse Rate 98 H 92 H 98 H Respiratory Rate 18 20 20 Blood Pressure 155/85 H 154/75 H 157/74 H Pulse Oximetry 90 L 92 L 94 L 11/05/17 04:00 11/05/17 04:24 11/05/17 08:00 Temperature 98.3 F 98.7 F Pulse Rate 100 H 100 H Respiratory Rate 18 20 Blood Pressure 132/61 166/80 H Pulse Oximetry 92 L 93 L 95 Intake & Output 11/04/17 11/05/17 11/05/17 18:59 06:59 18:59 Intake Total 1900 / 1900 1200 / 1200 Output Total 1000 / 1000 Balance 1900 / 1900 200 / 200 Weight 92.6 kg Intake: IV 1000 / 1000 1200 / 1200 NS Inj 1,000 ML @ 120 mls/hr IV 1000 / 1000 1000 / 1000 .CONT .Q8H20M [facility] Rx#:[id number] Ofirmev Inj 1,000 mg In 100 ml 200 / 200 @ 400 mls/hr IV.SIG Q6H [facility] Rx# :[id number] Oral 900 / 900 Output: Gastric Drainage 1000 / 1000 Right Nare Nasogastric Tube 1000 / 1000 Other: Date of Last Bowel Movement 11/05/17 # Bowel Movements 2 <[facility] 11/05/17 11:04> - Constitutional mild distress (Appears uncomfortable) <[facility] 11/05/17 11:04> - Routine Respiratory Exam Present: CTA bilaterally. Absent: accessory muscle use, decreased breath sounds , respiratory distress <[facility] 11/05/17 11:04> - Routine Cardiovascular Exam Present: RRR, S1, S2 <[facility] 11/05/17 11:04> - Routine Abdominal Exam Present: soft, mass (Area of bulging on left lateral area of the umbilicus, unchanged, no erythema or increased pain over area). Absent: normoactive bowel sounds (Hypoactive bowel sounds on auscultation), guarding, firm, rigid < [facility] 11/05/17 11:04> - Routine Extremities Exam Absent: cyanosis, clubbing, edema <[facility] 11/05/17 11:04> - Routine Skin Exam Present: intact <[facility] 11/05/17 11:04> - Routine Neurological Exam Present: alert, oriented X3 <[facility] 11/05/17 11:04> Assessment and Plan - Assessment (1) SBO (small bowel obstruction) Code(s): K56.609 - Unspecified intestinal obstruction, unspecified as to partial versus complete obstruction Status: Acute (2) Nausea & vomiting Code(s): R11.2 - Nausea with vomiting, unspecified Status: Acute (3) MARTIN (acute kidney injury) Code(s): N17.9 - Acute kidney failure, unspecified Status: Acute (4) Hypertension Code(s): I10 - Essential (primary) hypertension Status: Acute (5) Anxiety Code(s): F41.9 - Anxiety disorder, unspecified Status: Acute (6) Restless leg Code(s): G25.81 - Restless legs syndrome Status: Acute (7) Smoker Code(s): F17.200 - Nicotine dependence, unspecified, uncomplicated Status: Acute (8) History of drug abuse Code(s): Z87.898 - Personal history of other specified conditions Status: Acute (9) Nutrition, metabolism, and development symptoms Code(s): R63.8 - Other symptoms and signs concerning food and fluid intake Status: Acute (10) DVT prophylaxis Status: Acute <Anthony Elkins - 11/05/17 20:01> (1) SBO (small bowel obstruction) Code(s): K56.609 - Unspecified intestinal obstruction, unspecified as to partial versus complete obstruction Status: Acute Plan: Patient with acute midepigastric abdominal pain with associated nausea and vomiting, past hx of hernia repair, possible additional hernia per hx, CT shows SBO in RLQ. NG tube in place for decompression. Patient is uncomfortable with NG tube and requesting surgery Surgery consulted; monitoring NG output, ordered KUB Zofran IV for nausea Morphine IV for pain. Continue to monitor bowel movements as morphine can cause constipation but given her severity of pain it is the only IV drug that makes her comfortable currently. Continue to monitor I&O's. Pt it currently NPO x 48 hours Patient cannot take any PO medications. All medications will be given IV. (2) Nausea & vomiting Code(s): R11.2 - Nausea with vomiting, unspecified Status: Acute Plan: Patient complains of nausea and vomiting. Zofran IV as needed for nausea. Continue to monitor I's and O's. (3) MARTIN (acute kidney injury) Code(s): N17.9 - Acute kidney failure, unspecified Status: Acute Plan: Resolved with IV hydration Cr. on admission 1.23, and 0.77 today Possibly due to dehydration. Patient n.p.o. Continue normal saline hydration. Follow-up CMP in a.m. (4) Hypertension Code(s): I10 - Essential (primary) hypertension Status: Acute Plan: Patient takes 15 mg p.o. amlodipine daily at home. Unable to take p.o. due to NG tube. Patient hypertensive on admission: Systolics ranging from 150s-180s. Patient unable to take hypertension medications this morning due to nausea and vomiting. Vasotec 1.25 mg added as needed for systolics over 160. We will resume home medications after patient being n.p.o. for 48 hours. (5) Anxiety Code(s): F41.9 - Anxiety disorder, unspecified Status: Acute Plan: She takes duloxetine at home for anxiety. Unable to take p.o. medications due to NG tube. Benadryl IV as needed for anxiety. (6) Restless leg Code(s): G25.81 - Restless legs syndrome Status: Acute Plan: She takes hydroxyzine for restless leg syndrome. Unable to take p.o. due to NG tube. Benadryl IV as needed for restless leg. (7) Smoker Code(s): F17.200 - Nicotine dependence, unspecified, uncomplicated Status: Acute Plan: Patient smokes a half a pack per day. Nicotine patch is ordered for withdrawals. (8) History of drug abuse Code(s): Z87.898 - Personal history of other specified conditions Status: Acute Plan: UDS positive for marijuana (9) Nutrition, metabolism, and development symptoms Code(s): R63.8 - Other symptoms and signs concerning food and fluid intake Status: Acute Plan: Fluids: Normal saline at 120 mls/hour Electrolytes: Monitor and replete as needed. Diet: N.p.o. 48 hours follow-up recommendations of general surgery (10) DVT prophylaxis Status: Acute Plan: Heparin 5000 units SQ q8. <Shaunna Almazan - 11/05/17 10:52> - Assessment and Plan 67-year-old female with past medical history of hypertension, cardiac murmur, previous hernia repair 7 years ago presents to the emergency room with mid epigastric abdominal pain that started 4 hours before presentation. Patient has associated nausea and vomiting. SBO seen on CT. <Shaunna Almazan - 11/05/17 11:04> Discharge Planning: Pending advancement of diet, NG tube removal, clearance of general surgery <Shaunna Almazan - 11/05/17 11:04> - Attending Attestation The exam, history, and the medical decision-making described in the above note were completed with the assistance of the resident physician. I reviewed and agree with the findings presented. I attest that I had a [id number] encounter with the patient on the same day, and personally performed and documented my assessment and findings in the medical record.Delvin HARDY <Anthony Elkins - 11/05/17 20:01>
--- NOTE | 2017-11-05 12:05 | XR ---
EXAM DATE: 11/05/2017 12:03 PM EDT AGE/SEX: 67 years / Female INDICATIONS: Obstruction. CLINICAL DATA: This is the patient's subsequent encounter. Patient reports that signs and symptoms h ave been present for 1 week and indicates a pain score of 6/10. MEDICAL/SURGICAL HISTORY: . Hypertension. . Appendectomy. Hernia repair. COMPARISON: [facility], ABDOMEN 2V FLAT & UPRIGHT, 11/04/2017. . FINDINGS: The abdominal bowel gas pattern is normal. There is tubing overlying the left upper quadrant. No pro ximal port is visualized. No abnormal masses, calcifications, or organomegaly is seen. The osseous structures are unremarkable. CONCLUSION: No evidence of bowel obstruction. Electronically signed by: Merari Lunsford MD 11/05/2017 12:04 PM EDT
--- NOTE | 2017-11-05 14:20 | ECG ---
Date Performed: 11/04/2017 Time Performed: 15:06:14 PTAGE: 67 years EKG: Sinus rhythm LEFT ANTERIOR FASCICULAR BLOCK ANTEROSEPTAL MYOCARDIAL INFARCTION , PROBABLY OLD ABNORMAL ECG NO PREVIOUS TRACING DOCTOR: Shea Whitman Interpretating Date/Time 11/05/2017 14:19:26
[2017-11-06] MEDS: Sod Chloride 0.9% Inj 1,000 ML IV.CONT SCH (04:27)
[2017-11-06] MEDS: Heparin - SQ 10,000 UNITS/ML Vial SQ SCH (05:40)
[2017-11-06 09:36] LABS: Baso % (Auto) 0.2 % (0.0-2.0); Eos # (Auto) 0.3 th/mm3 (0.0-0.4); Hematocrit 44.2 % (35.0-46.0); Hemoglobin 14.6 gm/dL (11.6-15.3); Lymph # (Auto) 2.6 th/mm3 (1.0-4.8); Mean Corpuscular HGB Conc 33.1 % (32.0-36.0); Mean Corpuscular Hemoglobin 27.8 pg (27.0-34.0); Mean Corpuscular Volume 83.9 fL (80.0-100.0); Mean Platelet Volume 8.1 fL (7.0-11.0); Mono # (Auto) 0.9 th/mm3 (0.0-0.9); Mono % (Auto) 11.7 % (0.0-8.0); Neut # (Auto) 3.8 th/mm3 (1.8-7.7); Neut % (Auto) 50.1 % (16.0-70.0); Platelet Count 241 th/mm3 (150-450); Red Blood Count 5.27 mil/mm3 (4.00-5.30); Red Cell Distribution Width 16.8 % (11.6-17.2); White Blood Count 7.5 th/mm3 (4.0-11.0)
[2017-11-06 10:08] LABS: Alanine Aminotransferase 11 U/L (10-53); Alkaline Phosphatase 94 U/L (45-117); Anion Gap 8 meq/L (5-15); Aspartate Aminotransferase 16 U/L (15-37); Blood Urea Nitrogen 12 mg/dL (7-18); Calcium 7.6 mg/dL (8.5-10.1); Carbon Dioxide 23.9 meq/L (21.0-32.0); Chloride 110 meq/L (98-107); Glomerular Filtration Rate Greater Than 89 mL/min (>89); Glucose,Random 79 mg/dL (74-106); Potassium 3.8 meq/L (3.5-5.1); Sodium 142 meq/L (136-145); Total Protein 6.4 g/dL (6.4-8.2)
--- NOTE | 2017-11-06 10:40 | P.PNFP ---
Subjective Interval history: Patient seen and examined bedside this morning. She called the overnight team multiple times and demanded that her NG tube be removed. The NG tube was removed and she was eating and drinking without difficulty last night and this morning. No nausea or vomiting. The last time she vomited was 2 days ago per patient. She had 4 episodes of watery diarrhea yesterday. She denies any further abdominal pain. She feels 100% better and would like to go home. No chest pain or shortness of breath or dizziness. Results - Labs Result diagrams: 11/06/17 08:16 11/06/17 08:16 Abnormal lab results 11/06/17 11/06/17 Range/Units 08:16 08:16 Benson % (Auto) 11.7 H (0.0-8.0) % Chloride 110 H (98-107) meq/L Calcium 7.6 L D (8.5-10.1) mg/dL Albumin 3.0 L (3.4-5.0) g/dL Short CBC 11/06/17 Range/Units 08:16 WBC 7.5 (4.0-11.0) th/mm3 Hgb 14.6 (11.6-15.3) gm/dL Hct 44.2 (35.0-46.0) % Plt Count 241 (150-450) th/mm3 BMP 11/06/17 08:16 Sodium 142 Potassium 3.8 Chloride 110 H Carbon Dioxide 23.9 BUN 12 Creatinine 0.61 Calcium 7.6 L D Liver Function 11/06/17 Range/Units 08:16 Total Bilirubin 0.3 (0.2-1.0) mg/dL AST 16 (15-37) U/L ALT 11 (10-53) U/L Alkaline Phosphatase 94 (45-117) U/L Albumin 3.0 L (3.4-5.0) g/dL - Imaging Impressions Abdomen X-Ray 11/05/17 00:00 CONCLUSION: No evidence of bowel obstruction. Physical Exam Vital signs: Vital Signs 11/05/17 12:00 11/05/17 16:00 11/05/17 20:00 Temperature 98.4 F 98.3 F 98.1 F Pulse Rate 97 H 96 H 98 H Respiratory Rate 20 20 19 Blood Pressure 166/77 H 138/71 132/63 Pulse Oximetry 92 L 93 L 93 L 11/06/17 00:00 11/06/17 04:00 11/06/17 08:00 Temperature 98.0 F 98.2 F 97.6 F Pulse Rate 95 H 83 88 Respiratory Rate 18 Blood Pressure 123/68 157/68 H 162/80 H Pulse Oximetry 95 93 L 91 L Intake & Output 11/05/17 11/06/17 11/06/17 18:59 06:59 18:59 Intake Total 1000 / 1000 1000 / 1000 Output Total 5 / 5 Balance 995 / 995 1000 / 1000 Weight 92.9 kg Intake: IV 1000 / 1000 1000 / 1000 NS Inj 1,000 ML @ 120 mls/hr IV 1000 / 1000 1000 / 1000 .CONT .Q8H20M [facility] Rx#:[id number] Output: Urine 3 / 3 Stool 2 / 2 Other: # Voids 3 Date of Last Bowel Movement 11/05/17 11/05/17 # Bowel Movements 2 - Constitutional no acute distress - Routine Respiratory Exam Present: CTA bilaterally. Absent: accessory muscle use, decreased breath sounds - Routine Cardiovascular Exam Present: RRR, S1, S2. Absent: murmur - Routine Abdominal Exam Present: soft, normoactive bowel sounds. Absent: tenderness - Routine Neurological Exam Present: alert, oriented X3 Assessment and Plan - Assessment (1) SBO (small bowel obstruction) Code(s): K56.609 - Unspecified intestinal obstruction, unspecified as to partial versus complete obstruction Status: Acute Plan: Resolved. KUB on 11/05: No evidence of obstruction. Patient tolerating diet. Patient with diarrhea. On admission: Patient with acute midepigastric abdominal pain with associated nausea and vomiting, past hx of hernia repair, possible additional hernia per hx , CT shows SBO in RLQ. NG tube placed Surgery consulted; monitoring NG output, ordered KUB: No evidence of obstruction Zofran IV for nausea Morphine IV for pain. (2) Nausea & vomiting Code(s): R11.2 - Nausea with vomiting, unspecified Status: Acute Plan: Resolved. (3) MARTIN (acute kidney injury) Code(s): N17.9 - Acute kidney failure, unspecified Status: Acute Plan: Resolved . Cr. on admission 1.23, and 0.61 today Possibly due to dehydration. Patient n.p.o. Continue normal saline hydration. Follow-up CMP in a.m. (4) Hypertension Code(s): I10 - Essential (primary) hypertension Status: Acute Plan: Resume BP meds discharge Patient takes 15 mg p.o. amlodipine daily at home. Unable to take p.o. due to NG tube. Patient hypertensive on admission: Systolics ranging from 150s-180s. Patient unable to take hypertension medications this morning due to nausea and vomiting. Vasotec 1.25 mg added as needed for systolics over 160. We will resume home medications after patient being n.p.o. for 48 hours. (5) Anxiety Code(s): F41.9 - Anxiety disorder, unspecified Status: Acute Plan: Resume home meds at discharge She takes duloxetine at home for anxiety. Unable to take p.o. medications due to NG tube. Benadryl IV as needed for anxiety. (6) Restless leg Code(s): G25.81 - Restless legs syndrome Status: Acute Plan: She takes hydroxyzine for restless leg syndrome. Unable to take p.o. due to NG tube. Benadryl IV as needed for restless leg. (7) Smoker Code(s): F17.200 - Nicotine dependence, unspecified, uncomplicated Status: Acute Plan: Patient smokes a half a pack per day. Nicotine patch is ordered for withdrawals. (8) History of drug abuse Code(s): Z87.898 - Personal history of other specified conditions Status: Acute Plan: UDS positive for marijuana (9) Nutrition, metabolism, and development symptoms Code(s): R63.8 - Other symptoms and signs concerning food and fluid intake Status: Acute Plan: Fluids: Normal saline at 120 mls/hour Electrolytes: CMP normal Diet: Tolerating p.o. (10) DVT prophylaxis Status: Acute Plan: Heparin 5000 units SQ q8. - Assessment and Plan 67-year-old female with past medical history of hypertension, cardiac murmur, previous hernia repair 7 years ago presents to the emergency room with mid epigastric abdominal pain that started 4 hours before presentation. Patient has associated nausea and vomiting. SBO seen on CT. Discharge Planning: Plan for discharge today as patient is without NG and tolerating p.o., clearance and general surgery
--- NOTE | 2017-11-07 11:10 | P.DS ---
Date of admission: 11/04/17 08:45 Primary care physician: Socrates Soto Brief History from admission: 67 year old female with a past medical history of hypertension, cardiac murmur , previous hernia repair 7 years ago presents to the emergency room due to midepigastric abdominal pain that started last night around 11pm, she had associated cramping and described it as labor pains. The pain does not radiate. She had associated nausea and vomiting. Emesis x3 (clear fluids, no blood or bile). She did not take anything to relieve the pain. Nothing seems to make the pain better or worse and the pain comes and goes since 11pm. After that last time she threw up around 4 am, it was so bad that she broke out in a sweat and that prompted her to come to the ED. This has never happened to her before in the past. She has not had anything to eat anything since 11 am yesterday morning and had orange chicken from the [employer] restaurant. Last BM was a "hard BM" yesterday but pt is unsure of what time she went. She denies any melana. She had a hernia repair 7 year ago and the team noticed an additional hernia after the surgery that was not repaired due to the surgeon leaving the state. She states she has not been able to follow-up on this. Denies any recent illnesses or sick contacts. Has a BM at least once a day. Positive flatus earlier this morning. SH: lives in an apartment with her daughter, feels safe at home, not sexually active. DS: Diagnosis - Discharge Diagnosis (1) SBO (small bowel obstruction) Status: Acute (2) Nausea & vomiting Status: Acute (3) MARTIN (acute kidney injury) Status: Acute (4) Hypertension Status: Acute (5) Anxiety Status: Acute (6) Restless leg Status: Acute (7) Smoker Status: Acute (8) History of drug abuse Status: Acute (9) Nutrition, metabolism, and development symptoms Status: Acute (10) DVT prophylaxis Status: Acute DS: Summary Hospital Course: 67-year-old female with past medical history of hypertension, cardiac murmur, previous hernia repair 7 years ago presents to the emergency room with mid epigastric abdominal pain that started 4 hours before presentation. Patient has associated nausea and vomiting. SBO seen on CT. UDS positive for marijuana. patient also had elevated creatinine on admission at 1.23. NG tube was placed, patient was placed on normal saline maintenance. Surgery was consulted recommended monitoring NG output and ordered a KUB. Zofran IV was given for nausea and morphine IV for pain control. Over the hospital course, patient was found to be hypertensive and Vasotec 1.25 mg was added for systolic control. After 48 hours of being n.p.o. and having an NG tube, she began to have 4 episodes of watery diarrhea. The NG tube was removed and the KUB results came back with no evidence of obstruction, creatinine had decreased to 0.61. She was discharged home on her home medications and is to follow-up with her primary care provider in 2 weeks. - Time Spent with Patient Total time spent providing and/or coordinating discharge services: Less than 30 minutes Exam Vital signs: Vital Signs 11/06/17 12:00 Temperature 98.6 F Pulse Rate 84 Respiratory Rate 20 Blood Pressure 178/81 H Pulse Oximetry 93 L Results Procedures completed during hospitalization: Ng tube inserted on 11/04 - Impressions ITS Impressions Chest X-Ray 11/04/17 04:53 CONCLUSION: Cardiomegaly and indistinctness of the central bronchopulmonary markings. Abdomen/Pelvis CT 11/04/17 05:44 CONCLUSION: Small bowel obstruction with transition point in the right lower quadrant. No evidence of pneumatosis, portal venous gas, or pneumoperitoneum. No significant bowel wall thickening or surrounding edema to suggest ischemia at this time. Of note, there is mild swirling of the mesenteric vasculature near the root of the mesentery, which is nonspecific but can be seen in internal hernia/volvulus. Findings discussed with ER nurse, Morena, at 7:45 AM on 11/04/2017. Abdomen X-Ray 11/05/17 00:00 CONCLUSION: No evidence of bowel obstruction. Discharge Plan - Discharge Disposition Patient Disposition: 01 Discharge Home - Discharge Condition Condition: Stable - Discharge Order Discharge Orders: Discharge Order (Routine); Ordered 11/06/17 Ordered By: Shaunna Almazan - Physicians Team Primary Care Provider: Socrates Soto Attending Provider: Anthony Elkins Other Providers: Channing Leon MD
[2017-11-08 17:55] VITALS: BP 178/81; PULSE 84; RESP 20
[2017-11-08 18:13] VITALS: TEMP 98.6; O2SAT 93
== END 2017-11-06 13:07 | disposition home or self-care (01) ==
LOC: NEPE 04:31 → NEDA 08:45 → N05 10:46
PROVIDERS: ADMIT Family Medicine; ATTEND Family Medicine
DX: I10 Essential (primary) hypertension; F12.90 Cannabis use, unspecified, uncomplicated; L40.9 Psoriasis, unspecified; F41.9 Anxiety disorder, unspecified; F17.210 Nicotine dependence, cigarettes, uncomplicated; G25.81 Restless legs syndrome; N17.9 Acute kidney failure, unspecified; K56.609 Unspecified intestinal obstruction, unspecified as to partial versus complete obstruction